=== PATIENT | female | born 1965 | race Hispanic/Latino ===

== ENCOUNTER 2017-03-28 21:48 | Emergency (ER) | payer MEDICARE ==
[~2017-03-28] VITALS: Ht 157.5 cm; Wt 122.5 kg
[~2017-03-28 21:48] MED LIST: AMLODIPINE BESYL5 MG PO; CELEBREX100 MG PO; CLONAZEPAM1 MG PO; CYMBALTA60 MG PO; DIPHENOXYLATE-1 EACH PO; DOXEPIN PO; FLECTOR1 EACH PO; FLURBIPROFEN PO; FOLIC ACID1 MG PO; GABAPENTIN400 MG PO; GLUCOPHAGE1000 MG PO; HUMALOG100 UNIT/3 SQ; HYDROCODONE-AP1 EA13 PO; HYDROXYCHLOROQ200 MG PO; HYDROXYZINE HCL25 MG PO; IMITREX100 MG PO; KETOPROFEN 5% TOP; LAMOTRIGINE PO; LEVEMIR 3M100 UNITS/ SQ; LITHIUM CARBON300 MG PO; LOSARTAN PO; LOVASTATIN PO; LYRICA200 MG PO; METAXALONE800 MG PO; METHOCARBAMOL PO; METHOTREXATE2.5 MG PO; METOPROLOL SUCC50 MG PO; MORPHINE 15 MG; NAPROXEN PO; NORCO 10-325 T1 EACH PO; OXAZEPAM PO; OXYCODONE-ACET1 EAC1 PO; PANTOPRAZOLE PO; PERCOCET 10-321 EACH PO; PROAIR INHALER; PROMETHAZINE HC25 M1 PO; PROPRANOLOL HCL20 MG PO; SAVELLA25 MG PO; SERTRALINE HCL25 MG PO; SUCRALFATE PO; TIZANIDINE HCL4 M1 PO; TORSEMIDE10 MG PO; TRAZODONE HCL50 MG PO; ULTRACET TABLE1 EACH PO; VALIUM10 MG PO; Z.0.AMBIEN10 MG PO; Z.0.CITALOPRAM HBR40 PO; Z.0.CRESTOR5 MG PO; Z.0.DEPAKOTE250 MG PO; Z.0.DEXILANT60 MG PO; Z.0.KLOR-CON 1010 ME PO; Z.0.LISINOPRIL10 MG PO; Z.0.METOPROLOL SUCC5 PO; Z.0.TOPAMAX25 MG PO; ZOFRAN ODT4 MG PO; ZOLPIDEM TARTRA10 MG PO; [UNRECOGNIZED DRUG - OTHER] IV; [UNRECOGNIZED DRUG - OTHER] SC
--- OUTSIDE RECORDS SUMMARY | 2017-03-28 21:52 | XMS REPORT | Clinical Summary ---
Author Author [facility] Address Unknown Phone Unavailable Care Team Providers [facility]mer Name Role Phone Bryn York MD PCP Allergies No Known Allergies Current Medications Prescription Sig. Disp. Refills Start End Date Status Date morPHINE (MSIR) 15 MG TK 1 T PO Q 12 H PRN P 0 08/10/19 Active tablet 17 morPHINE (MS CONTIN) 15 TK 1 T PO Q 12 H PRN P 0 08/10/19 Active MG 12 hr tablet 17 clonAZEPAM (KlonoPIN) 2 TK 1 T PO QHS FOR 2 08/04/19 Active MG tablet RESTLESS LEG SYNDROME 17 SUMAtriptan (IMITREX) 100 TK 1 T PO QD PRN 1 08/04/19 Active MG tablet 17 lovastatin (MEVACOR) 10 Take 10 mg by mouth Active MG tablet nightly. lamoTRIgine (LaMICtal) Take 200 mg by mouth Active 200 MG tablet daily. amLODIPine (NORVASC) 5 mg Take 5 mg by mouth daily. Active tablet budesonide-formoterol Inhale 2 puffs 2 (two) Active (SYMBICORT) 160-4.5 times a day. mcg/actuation inhaler LEVEMIR FLEXTOUCH 100 INJECT 65 UNITS UNDER THE 2 08/06/19 Active unit/mL (3 mL) insulin SKIN BID 17 pen doxepin (SINEquan) 10 MG TK 1 C PO QHS 0 08/04/19 Active capsule 17 albuterol (PROAIR Inhale 2 puffs every 6 Active HFA,PROVENTIL (six) hours as needed for HFA,VENTOLIN HFA) 90 wheezing. mcg/actuation inhaler diazePAM (VALIUM) 5 MG Take 5 mg by mouth every Active tablet 6 (six) hours as needed for anxiety. zolpidem (AMBIEN) 10 mg Take 10 mg by mouth Active tablet nightly as needed for sleep. ondansetron (ZOFRAN) 4 MG Take 4 mg by mouth every Active tablet 8 (eight) hours as needed for nausea or vomiting. torsemide (DEMADEX) 20 MG Take 20 mg by mouth Active tablet daily. metoprolol succinate XL Take 50 mg by mouth Active (TOPROL-XL) 50 mg 24 hr daily. tablet insulin lispro (HumaLOG) Inject under the skin 3 Active 100 unit/mL injection (three) times a day before meals. diclofenac (VOLTAREN) 1 % Apply 2 g topically 4 Active gel (four) times a day. gabapentin (NEURONTIN) Take 400 mg by mouth 3 Active 400 mg capsule (three) times a day. celecoxib (CeleBREX) 200 Take 200 mg by mouth 2 Active MG capsule (two) times a day. milnacipran (SAVELLA) 50 Take 100 mg by mouth 2 Active mg tablet (two) times a day. sertraline (ZOLOFT) 100 Take 100 mg by mouth Active MG tablet daily. Active Problems No known active problems Encounters Date Type Specialty Care Team Description 02/12/2017 Office Visit General Surgery Mauricio Hernandez MD Morbid obesity due to excess calories (Primary Dx);Diabetes mellitus due to underlying condition with hyperosmolarity without coma, without long-term current use of insulin;Essential hypertension;Hyperlipidem ia, unspecified hyperlipidemia type;Gastroparesis;Gastro esophageal reflux disease, esophagitis presence not specified 08/19/2016 Office Visit Orthopedic Surgery Catie Valencia MD Acute pain of both knees (Primary Dx);Acute bilateral ankle pain after 03/27/2016 Family History Medical History Relation Name Comments Diabetes Brother Aydin Cardozao Diabetes Brother Jonnie Mcknight Anesthesia problems Father Aydin morphine Mcknight Jr Cancer Father Aydin coloan and prostate Mcknight Jr Diabetes Father Aydin Mcknight Jr Anesthesia problems Mother Madisyn Mcknight Diabetes Mother Madisyn Mcknight Cancer Paternal Aunt Bozena Hahn Diabetes Paternal Brittany Grandfather Mcknight Diabetes Paternal Aydin Grandmother Mcknight Sr Relation Name Status Comments Brother Aydin Mcknight Brother Jonnie Mcknight Father Aydin Mcknight Jr Mother Madisyn Mcknight Paternal Aunt Bozena Hahn Paternal Grandfather Brittany Mcknight Paternal Grandmother Aydin Mcknight Sr Social History Tobacco Use Types Packs/Day Years Used Date Former Smoker Cigarettes 0.25 2 07/09/1989 - 10/31/1991 Alcohol Use Drinks/Week oz/Week Comments No Sex Assigned at Date Recorded Not on file Last Filed Vital Signs Vital Sign Reading Time Taken Blood Pressure 153/86 02/12/2017 1:29 PM [employer] Pulse 87 02/12/2017 1:29 PM [employer] Temperature 36.4 C (97.5 F) 02/12/2017 1:29 PM [employer] Respiratory Rate - - Oxygen Saturation - - Inhaled Oxygen - - Concentration Weight 120 kg (264 lb 3.2 oz) 02/12/2017 1:29 PM [employer] Height 157.5 cm (5' 2") 02/12/2017 1:29 PM [employer] Body Mass Index 48.32 02/12/2017 1:29 PM [employer] Plan of Treatment Health Maintenance Due Date Last Done Comments FOOT EXAM 06/24/1977 OPHTHALMOLOGY EXAM 06/24/1977 URINE MICROALBUMIN 06/24/1977 PAP SMEAR 06/24/1988 INFLUENZA VACCINE 09/24/2016 Results * XR Ankle 3 Vw Bilateral (08/19/2016 1:45 PM) Specimen Performing Laboratory [facility] [address] [place] [address] Narrative No fracture, no dislocation, normal alignment, preserved joint spaces, and no pathologic lesion * XR Knee 4+ Vw Bilateral (08/19/2016 1:45 PM) Specimen Performing [facility] [address] [place] [address] Narrative Radiographs of the left knee, 4 views, standing AP, standing PA notch, lateral, and sunrise views: No fracture, no dislocation, normal alignment, preserved joint spaces, and no pathologic lesion Radiographs of the right knee, 4 views, standing AP, standing PA notch, lateral, and sunrise views: No fracture, no dislocation, normal alignment, preserved joint spaces, and no pathologic lesion after 03/27/2016 Insurance Payer Benefit Subscriber ID Type Phone Address Plan / Group AETNA MEDICARE AETNA [id number] O MEDICARE HMO/[id number] [id number] [address] [id number]
[2017-03-28] MEDS ORDERED: KETOROLAC TROMETHAMINE 30 MG/ML VIAL IV STA (22:18)
[2017-03-28] MEDS ORDERED: SODIUM CHLORIDE 0.9% 500ML 500 ML IV ONE (22:30)
[2017-03-28] MEDS ORDERED: METOCLOPRAMIDE HCL 10 MG/2ML VIAL IV ONE (22:30)
[2017-03-28] MEDS ORDERED: DIPHENHYDRAMINE HCL INJ 50 MG/ML VIAL IV ONE (22:30)
== END 2017-03-29 03:29 | disposition home or self-care (01) ==
LOC: ER 21:48
DX: G43.909 Migraine, unspecified, not intractable, without status migrainosus (principal)
CPT/HCPCS: 36415; 84702; 99283; J1200; J1885; J2765; J7040